=== PATIENT | male | born 1995 | race Two or more races ===

== ENCOUNTER 2025-04-13 23:01 | Emergency (ER) | payer MEDICAID, SELFPAY ==
[2025-04-13 23:04] VITALS: BMI 24.2
[2025-04-14 01:00] VITALS: BP 133/82; PULSE 82; RESP 16; TEMP 37.1; O2SAT 98
--- NOTE | 2025-04-14 01:06 | XR_ITS ---
Examination: CT abdomen with intravenous contrast CT pelvis with intravenous contrast 2-D coronal reconstructions 2-D sagittal reconstructions Date and time of exam: April 14, 2025, 0438 hours INDICATIONS: Onset right lower abdominal pain beginning today. CTDI: vol (mGy) 6.29 DLP: (mGycm) 403 Technique: Multiple axial sections of the abdomen and pelvis have been obtained. 64 slice high-resolution scanner used. 3 mm axial sections have been obtained, post intravenous injection 60 cc Isovue-[id number] 2-D sagittal, coronal reconstructions obtained. Low dose protocols were performed. One or more of the following dose reduction techniques were used; automated exposure control, adjustment of the mA and/or KV according to patient size, use of iterative reconstruction technique. Findings: No focal liver or splenic lesions No gallstones No pancreatic or adrenal mass. No renal or ureteral calculi, no hydronephrosis Mild small bowel ileus Aorta normal size Focal area of fat inflammation in the right lower abdomen, image [id number], measuring 20 mm x 30 mm Normal appendix Urinary bladder intact IMPRESSION: Mild small bowel ileus Normal appendix Epiploic appendagitis
--- NOTE | 2025-04-14 01:07 | PD.EDRME ---
Rapid Medical Screening Exam E Arrival date/time: 04/13/25 23:01 29M with no significant PMH presents to ED with several days of worsening RLQ pain and N/V. No hematuria. Chief Complaint: Abdominal Pain Vital signs: Vital Signs Temperature 98.7 F 04/14/25 01:00 Pulse Rate 82 04/14/25 01:00 Respiratory Rate 16 04/14/25 01:00 Blood Pressure 133/82 H 04/14/25 01:00 Pulse Oximetry (%) 98 04/14/25 01:00 Oxygen Delivery Method Room Air 04/14/25 01:00
[2025-04-14 01:19] LABS: Basophils # (Auto) 0.1 Thou/mm3 (0.0-0.2); Basophils % (Auto) 1 % (0-2.5); Eosinophils # (Auto) 0.1 Thou/mm3 (0.0-0.5); Eosinophils % (Auto) 1 % (0-10); Hematocrit 45.5 % (41.0-53.0); Hemoglobin 15.5 g/dL (13.5-16.0); Immature Granulocytes Auto 0.03 Thou/mm3 (0.00-0.00); Lymphocytes # (Auto) 2.3 Thou/mm3 (1.0-4.8); Lymphocytes % (Auto) 21 % (10-50); Mean Corpuscular HGB Conc 34.1 g/dl (31.0-37.0); Mean Corpuscular Hemoglobin 30.7 pg (25.0-35.0); Mean Corpuscular Volume 90 fL (80-100); Monocytes # (Auto) 1.0 Thou/mm3 (0.0-0.8); Monocytes % (Auto) 9 % (0-12); Neutrophils # (Auto) 7.6 Thou/mm3 (1.8-7.7); Neutrophils % (Auto) 69 % (37-80); Nucleated Red Blood Cell # 0.00 Thou/mm3 (0.00-0.00); Nucleated Red Blood Cell % 0 /100 WBC (0); Platelet Count 236 Thou/mm3 (140-440); RDW Standard Deviation 41.7 fL (35.1-43.9); Red Blood Count 5.05 Miln/mm3 (4.50-5.90); White Blood Count 11.0 Thou/mm3 (3.8-10.6)
[2025-04-14 01:43] LABS: Alanine Aminotransferase 18 U/L (10-49); Albumin, Serum 4.8 gm/dL (3.5-5.0); Albumin/Globulin Ratio 1.9 (1.2-2.2); Alkaline Phosphatase 69 U/L (46-116); Anion Gap 10 (7-16); Aspartate Amino Transferase 22 U/L (0-34); BUN/Creatinine Ratio 11 Ratio (12-20); Bilirubin,Total 1.2 mg/dL (0.3-1.2); Blood Urea Nitrogen 10 mg/dL (9-23); Calcium 9.6 mg/dL (8.3-10.6); Calcium (Corrected) 9.6 mg/dL (8.5-10.1); Carbon Dioxide 30.3 mMol/L (20.0-31.0); Chloride 103 mMol/L (98-107); Creatinine (Component) 0.9 mg/dL (0.6-1.3); Estimated Creatinine Clearance 118.9 mL/min (>60); Globulin 2.5 gm/dL (2.3-3.5); Glucose 106 mg/dL (74-106); Osmolality,Calculated 283 (275-295); Potassium 3.7 mMol/L (3.4-5.1); Sodium 143 mMol/L (136-145); Total Protein 7.3 gm/dL (5.7-8.2); eGFR > 60 See Note
[2025-04-14 02:24] LABS: Collection Type, Urine Clean Catch; Squamous Epithelial Cell,Urine 0 /hpf (0-5)
[2025-04-14 02:30] LABS: Bacteria,Urine Rare; Bilirubin,Urine Negative (Negative); Blood,Urine Negative (Negative); Clarity,Urine Clear (Clear/Hazy); Color,Urine Yellow (Lt Yel-Yel); Culture Indicated,Urine Not Indicated; Glucose, Urine Negative (Negative); Ketones,Urine 1+ (Negative); Leukocyte Esterase,Urine Negative (Negative); Nitrite,Urine Negative (Negative); PH,Urine 6.0 (5.0-7.0); Protein,Urine 1+ (Neg - Trace); RBC,Urine 5 /hpf (0-3); Specific Gravity,Urine 1.036 (1.001-1.035); Urobilinogen,Urine 2.0 mg/dL (0.0-1.0); WBC,Urine 1 /hpf (0-5)
[2025-04-14 02:38] LABS: Amphetamine/Methamp Scrn,U Negative (Negative); Barbiturate Screen,Urine Negative (Negative); Benzodiazepines Screen,Urine Negative (Negative); Benzoylecgonine Screen, Ur Positive (Negative); Fentanyl Screen,Urine Negative (Negative); Opiate Screen,Urine Negative (Negative); THC Screen,Urine Negative (Negative)
[2025-04-14 04:04] VITALS: BP 126/80; PULSE 73; RESP 18; O2SAT 97
--- NOTE | 2025-04-14 05:53 | PRELIM_ITS ---
CT scan of the abdomen and pelvis with intravenous contrast (axial sections with sagittal and coronal reformats) April 14, 2025 0438 hours Clinical History: Right lower quadrant pain. Comparison: No prior study is available for comparison. Findings: The lung bases are clear. Liver, gallbladder, spleen, adrenal glands, pancreas and kidneys are unremarkable. The appendix is normal, best seen on coronal image 62. There is a 6 x 2 x 2 cm area of omental inflammation in the anterior right lower quadrant. Bowel caliber is normal. The urinary bladder is normal. Trace free fluid in the pelvis. No free intraperitoneal air. No acute osseous process. Impression: Right lower quadrant omental inflammation, may represent focal omental infarction. Normal appendix. Report Electronically Signed By: Collin Ortega 04/14/2025 5:52:59 AM [EST]
[2025-04-14] MEDS: SODIUM CHLORIDE 0.9% 1000 ML 1,000 ML 500 ML IV (05:56)
[2025-04-14] MEDS: ONDANSETRON INJ 2 MG/ML INJ 2 ML 4 MG IVP ×2 (06:00→07:35)
[2025-04-14] MEDS: MORPHINE SULF INJ 4 MG/ML VIAL IV (06:01)
[2025-04-14 06:05] VITALS: BP 130/100; PULSE 83; RESP 14; TEMP 37; O2SAT 99
--- NOTE | 2025-04-14 06:55 | EKG_ITS ---
[facility] Test Date: 2025-04-14 Pat Name: MARITA BAKER Department: Room: - Gender: Male [employer]: : 1995 Requested By: Rohan Chan Order Number: [id number] Reading MD: Rohan Chan Measurements Intervals [place] Rate: 76 P: 50 WY: 162 QRS: 13 QRSD: 91 T: 17 QT: 399 QTc: 450 Interpretive Statements SINUS RHYTHM WITH SINUS ARRHYTHMIA POSSIBLE LEFT ATRIAL ENLARGEMENT [-0.1mV P-WAVE IN V1/V2] POSSIBLE LEFT VENTRICULAR HYPERTROPHY [VOLTAGE CRITERIA PLUS LAE OR QRS WIDENING] No previous ECG available for comparison /store/S0/[id number]/[id number].pdf
[2025-04-14 07:28] LABS: Lactate (Lactic Acid) 0.7 mMol/L (0.4-2.0)
--- NOTE | 2025-04-14 07:33 | PC.NURSE ---
PHARMACY CALL FOR [facility]
[2025-04-14 07:35] VITALS: BP 109/77; PULSE 71; RESP 16; TEMP 36.1; O2SAT 99
--- NOTE | 2025-04-14 07:35 | PC.NURSE ---
RE[PORT RECIEIVED AT 0710 AND CARE ASSUMED. PT HERE WITH C/O ABD PAIN FOR 3 DAYS AND HX 12 PACK BEER DAILY
[2025-04-14] MEDS: MORPHINE SULF INJ 4 MG/ML VIAL IVP (07:36)
[2025-04-14 07:46] LABS: INR 1.0 (0.9-1.3); Partial Thromboplastin Time 31.6 Seconds (22.0-36.0); Prothrombin Time 10.9 Seconds (9.0-12.2)
[2025-04-14] MEDS: PIPER/TAZO 3.375 GM PREMIX 3.375 GM/50 ML BAG IV (08:05)
[2025-04-14] MEDS: KETOROLAC INJ 30 MG/ML VIAL IVP (08:05)
[2025-04-14 08:45] VITALS: BP 134/90; PULSE 74; RESP 16; O2SAT 99
--- NOTE | 2025-04-14 11:20 | PD.EDABDPN ---
ED Abdominal Pain RME/HPI General Chief Complaint: Abdominal Pain Stated complaint: RLQ PAIN Time seen by provider: 04/14/25 06:43 Arrival date/time: 04/13/25 23:01 Limitations: no limitations RME / HPI RME / HPI narrative: 04/13/25 23:01 29M with no significant PMH presents to ED with several days of worsening RLQ pain and N/V. No hematuria. DR. CARPIO MAIN ED EVALUATION: 29 year old male with no stated medical history presents to the ED for evaluation of abdominal pain beginning 4 days ago. Described as aching in sensation that is located most to the right lower abdomen with no radiation. Rating 8/10 in severity. Accompanied by nausea and vomiting. Denies fevers, chills, sweats, diarrhea, constipation, or urinary symptoms. No history of similar pain. No known modifying factors at home. Related Data Allergies Allergy/AdvReac Type Severity Reaction Status Date / Time No Known Allergies Allergy Verified 04/13/25 23:03 Review of Systems Review of Systems Systems Reviewed: All systems reviewed, normal except as documented Past Medical History Past Medical History CARDIAC: Negative Cardiac Disorders or Congestive Heart Failure RESPIRATORY: Negative Chronic Obstructive Pulmonary Disease (COPD) or Asthma GENITOURINARY: Negative Renal Disease ENDOCRINE: Negative Diabetes Mellitus Type 1 or Diabetes Mellitus Type 2 HEMATOLOGIC: Negative Sickle Cell Disease Social History SMOKING STATUS: Never smoker ED Exam General Limitations: Present no limitations General appearance: Present alert and other (appears uncomfortable ) Head Head exam: Present atraumatic, normocephalic and normal inspection Eye Eye exam: Present normal appearance, PERRL and EOMI ENT ENT exam: Present normal exam, normal oropharynx and mucous membranes moist Neck Neck exam: Present normal inspection, full ROM and trachea midline Chest Chest inspection: Present normal inspection and symmetric chest wall rise Respiratory Respiratory exam: Present normal lung sounds bilaterally Cardiovascular Cardiovascular exam: Present regular rate, normal rhythm and normal heart sounds Abdominal Exam Abdominal exam: Present soft, tenderness (mild tenderness to the right lower abdomen) and normal bowel sounds; Absent distention, guarding, rebound, rigidity or mass Extremities Exam Extremities exam: Present normal inspection and full ROM Back Exam Back exam: Present normal inspection and full ROM Neurological Exam Neurological exam: Present alert, oriented X3 and CN II-XII intact Psychiatric Psychiatric exam: Present normal affect and normal mood Skin Skin exam: Present warm, dry, intact and normal color Course Quality Measures none Orders Category Date Time Status CT Screening NOW Care 04/14/25 01:06 Completed Business Solutions Director NOW Care 04/14/25 06:55 Completed Continuous Pulse Oximetry NOW Care 04/14/25 06:55 Completed EKG (ED ONLY) *Do not use* NOW Care 04/14/25 06:55 Completed Insert IV NOW Care 04/14/25 01:07 Completed Insert IV NOW Care 04/14/25 06:55 Completed NPO NOW Care 04/14/25 04:43 Completed Diet NPO (NOW) Diet 04/14/25 04:[address] abdomen pelvis w con Stat Exams 04/14/25 01:06 Completed EKG (ED Only) Stat Exams 04/14/25 06:55 Draft Blood Culture (Lab) Stat Lab 04/14/25 07:19 Completed CBC Stat Lab 04/14/25 01:14 Completed CMP [Comprehensive Metabolic Panel] Stat Lab 04/14/25 01:14 Completed Drug Screen,Urine Stat Lab 04/14/25 01:42 Completed Lactic Acid [Lactate (Lactic Acid)] Stat Lab 04/14/25 07:19 Completed Partial Thromboplastin Time Stat Lab 04/14/25 07:19 Completed Prothrombin Time with INR Stat Lab 04/14/25 07:19 Completed Urinalysis, C/S if Indicated Stat Lab 04/14/25 01:42 Completed Ketorolac Inj [Toradol Inj] Med 04/14/25 07:49 Discontinued 30 mg IVP X1 ONE Morphine* Inj Med 04/14/25 04:43 Discontinued 4 mg IV X1 ONE Morphine* Inj Med 04/14/25 06:57 Discontinued 4 mg IVP X1 ONE Ondansetron Inj [Zofran Inj] Med 04/14/25 04:43 Discontinued 4 mg IVP X1 ONE Ondansetron Inj [Zofran Inj] Med 04/14/25 06:57 Discontinued 4 mg IVP X1 ONE Piper/Tazo 3.375 gm Premix [Zosyn] Med 04/14/25 06:56 Discontinued 3.375 gm in 50 ml IV X1 Sodium Chloride 0.9% 1000 ml [Ns] 1,000 ml Med 04/14/25 04:43 Discontinued IV 500 mls/hr Vital Signs Vital signs: Vital Signs Temperature 98.7 F 04/14/25 01:00 Pulse Rate 82 04/14/25 01:00 Respiratory Rate 16 04/14/25 01:00 Blood Pressure 133/82 H 04/14/25 01:00 Pulse Oximetry (%) 98 04/14/25 01:00 Oxygen Delivery Method Room Air 04/14/25 01:00 Pulse ox is 98% on room air which is adequate. Abdominal Pain MDM MDM Narrative MDM Narrative:: Laurel Bynum am scribing for and in the presence of Dr. Carpio. Patient data External records reviewed:: [facility] previous records Clinical information provided by:: patient Social determinants that could affect healthcare access:: none Patient has the following chronic illnesses:: None reported How is presenting disease/condition affected by chronic disease/condition?: no chronic disease Evaluation data The following diagnostics were reviewed and interpreted by me:: lab results, radiology exam(s) and EKG tracing(s) (EKG @ 08:21 AM. NSR with sinus arrythmia, rate 76, no STEMI. ) Lab and/or radiology exams considered but not ordered:: None Interpretation Summary: Ordering Physician: Finn Graham PA-C Date of Service: 04/14/25 Procedure(s): CT abdomen pelvis w con Accession Number(s): [id number] cc: Peter Burnett MD; NO PRIMARY/FAMILY,PHYSICIAN; Finn Graham PA-C~ Examination: CT abdomen with intravenous contrast CT pelvis with intravenous contrast 2-D coronal reconstructions 2-D sagittal reconstructions Date and time of exam: April 14, 2025, 0438 hours INDICATIONS: Onset right lower abdominal pain beginning today. CTDI: vol (mGy) 6.29 DLP: (mGycm) 403 Technique: Multiple axial sections of the abdomen and pelvis have been obtained. 64 slice high-resolution scanner used. 3 mm axial sections have been obtained, post intravenous injection 60 cc Isovue-[id number] 2-D sagittal, coronal reconstructions obtained. Low dose protocols were performed. One or more of the following dose reduction techniques were used; automated exposure control, adjustment of the mA and/or KV according to patient size, use of iterative reconstruction technique. Findings: No focal liver or splenic lesions No gallstones No pancreatic or adrenal mass. No renal or ureteral calculi, no hydronephrosis Mild small bowel ileus Aorta normal size Focal area of fat inflammation in the right lower abdomen, image [id number], measuring 20 mm x 30 mm Normal appendix Urinary bladder intact IMPRESSION: Mild small bowel ileus Normal appendix Epiploic appendagitis Dictated By: Peter Burnett MD Signed By: <Electronically signed by Peter Burnett MD in OV> 04/14/25 0744 Medications / Prescriptions Medications or Prescriptions considered but not ordered:: None Medication administrations:: Medication Administration History Discontinued Medications Sodium Chloride (Ns) 1,000 mls @ 500 mls/hr IV .Q2H ONE Stop: 04/14/25 06:42 Last Infusion: 04/14/25 08:15 Dose: Infused Documented By: Admin: 04/14/25 05:56 Dose: 500 mls/hr Documented By: TA Piperacillin/Tazobactam/Dextrose (Zosyn) 3.375 gm in 50 mls @ 100 mls/hr IV X1 ONE; Protocol Stop: 04/14/25 07:25 Last Infusion: 04/14/25 08:33 Dose: Infused Documented By: Admin: 04/14/25 08:05 Dose: 100 mls/hr Documented By: NATALIA Ketorolac Tromethamine (Ketorolac Inj 30 Mg/Ml Vial) 30 mg IVP X1 ONE Stop: 04/14/25 07:50 Last Admin: 04/14/25 08:05 Dose: 30 mg Documented By: NATALIA Morphine Sulfate (Morphine Sulf Inj 4 Mg/Ml Vial) 4 mg IV X1 ONE Stop: 04/14/25 04:44 Last Admin: 04/14/25 06:01 Dose: 4 mg Documented By: TA Morphine Sulfate (Morphine Sulf Inj 4 Mg/Ml Vial) 4 mg IVP X1 ONE Stop: 04/14/25 06:58 Last Admin: 04/14/25 07:36 Dose: 4 mg Documented By: NATALIA Ondansetron HCl (Ondansetron Inj 2 Mg/Ml Inj 2 Ml) 4 mg IVP X1 ONE; Protocol Stop: 04/14/25 04:44 Last Admin: 04/14/25 06:00 Dose: 4 mg Documented By: DT Ondansetron HCl (Ondansetron Inj 2 Mg/Ml Inj 2 Ml) 4 mg IVP X1 ONE; Protocol Stop: 04/14/25 06:58 Last Admin: 04/14/25 07:35 Dose: 4 mg Documented By: [facility] None Consultations Consultation(s) initiated? (list below): No Diagnosis Differential diagnosis abdominal pain: abdominal pain, acute appendicitis, calculus of kidney and constipation Most likely diagnosis given after review of the tests above:: Epiploci appendagitis Abdominal pain Admission Indicated Admission indicated?: not indicated Admission Request Was there a request for admission?: No Disposition Plan Disposition Plan: Discharge Discharge Attestation Discharge Attestation: The patient and all family members were given an opportunity to ask questions and understood the discharge instructions. Discharge instructions specifically effects, indications for sooner follow up or return to the emergency department, and the expected course of current diagnosis. Patient condition: Stable Discharge Plan Plan Patient Disposition: HOME (Self Care) Patient condition on transfer: Stable Prescriptions/Referrals Referrals: No Primary/Family,Physician [Primary Care Provider] - In 1 week Problem List Clinical Impression: Epiploic appendagitis, Abdominal pain Patient/Caregiver Discharge Instructions Discharge Activity: activity as tolerated Education Materials: Abdominal Pain, Anatomy of the Digestive System Additional Instructions: Take Advil gelcaps 3 caps every 6 hours for 5 days. Follow-up with your doctor in 1 day. If you have any concerns please return to the emergency department. Print Language: Iranian Stand Alone Forms: Shivani Award Info., Patient Portal Info Letter
--- NOTE | 2025-04-23 10:46 | EDNOTE_ITS ---
ED General RME/HPI General Chief complaint: Abdominal Pain Stated complaint: RLQ PAIN Time Seen by Provider: 04/14/25 06:43 Arrival date/time: 04/13/25 23:01 Limitations: no limitations RME / HPI RME / HPI narrative: 04/13/25 23:01 29M with no significant PMH presents to ED with several days of worsening RLQ pain and N/V. No hematuria. DR. CARPIO MAIN ED EVALUATION: 29 year old male with no stated medical history presents to the ED for evaluation of abdominal pain beginning 4 days ago. Described as aching in sensation that is located most to the right lower abdomen with no radiation. Rating 8/10 in severity. Accompanied by nausea and vomiting. Denies fevers, chills, sweats, diarrhea, constipation, or urinary symptoms. No history of similar pain. No known modifying factors at home. Related Data Allergies Allergy/AdvReac Type Severity Reaction Status Date / Time No Known Allergies Allergy Verified 04/13/25 23:03 ED Exam General Limitations: Present no limitations General appearance: Present alert and other (appears uncomfortable ) Head Head exam: Present atraumatic Eye Eye exam: Present normal appearance, PERRL and EOMI ENT ENT exam: Present normal exam, normal oropharynx and mucous membranes moist Neck Neck exam: Present normal inspection, full ROM and trachea midline Chest Chest inspection: Present normal inspection and symmetric chest wall rise Respiratory Respiratory exam: Present normal lung sounds bilaterally Cardiovascular Cardiovascular exam: Present regular rate, normal rhythm and normal heart sounds Abdominal Exam Abdominal exam: Present soft, tenderness and normal bowel sounds; Absent organomegaly or mass Abdominal tenderness: Present diffuse exam: Present normal inspection; Absent testicular tenderness Extremities Exam Extremities exam: Present normal inspection and full ROM Back Exam Back exam: Present normal inspection and full ROM Neurological Exam Neurological exam: Present alert, oriented X3 and CN II-XII intact Psychiatric Psychiatric exam: Present normal affect and normal mood Skin Skin exam: Present warm, dry, intact and normal color Course Quality Measures none Orders Category Date Time Status CT Screening NOW Care 04/14/25 01:06 Completed Pig Machine Operator NOW Care 04/14/25 06:55 Completed Continuous Pulse Oximetry NOW Care 04/14/25 06:55 Completed EKG (ED ONLY) *Do not use* NOW Care 04/14/25 06:55 Completed Insert IV NOW Care 04/14/25 01:07 Completed Insert IV NOW Care 04/14/25 06:55 Completed NPO NOW Care 04/14/25 04:43 Completed Diet NPO (NOW) Diet 04/14/25 04:[address] abdomen pelvis w con Stat Exams 04/14/25 01:06 Completed EKG (ED Only) Stat Exams 04/14/25 06:55 Draft Blood Culture (Lab) Stat Lab 04/14/25 07:19 Completed CBC Stat Lab 04/14/25 01:14 Completed CMP [Comprehensive Metabolic Panel] Stat Lab 04/14/25 01:14 Completed Drug Screen,Urine Stat Lab 04/14/25 01:42 Completed Lactic Acid [Lactate (Lactic Acid)] Stat Lab 04/14/25 07:19 Completed Partial Thromboplastin Time Stat Lab 04/14/25 07:19 Completed Prothrombin Time with INR Stat Lab 04/14/25 07:19 Completed Urinalysis, C/S if Indicated Stat Lab 04/14/25 01:42 Completed Ketorolac Inj [Toradol Inj] Med 04/14/25 07:49 Discontinued 30 mg IVP X1 ONE Morphine* Inj Med 04/14/25 04:43 Discontinued 4 mg IV X1 ONE Morphine* Inj Med 04/14/25 06:57 Discontinued 4 mg IVP X1 ONE Ondansetron Inj [Zofran Inj] Med 04/14/25 04:43 Discontinued 4 mg IVP X1 ONE Ondansetron Inj [Zofran Inj] Med 04/14/25 06:57 Discontinued 4 mg IVP X1 ONE Piper/Tazo 3.375 gm Premix [Zosyn] Med 04/14/25 06:56 Discontinued 3.375 gm in 50 ml IV X1 Sodium Chloride 0.9% 1000 ml [Ns] 1,000 ml Med 04/14/25 04:43 Discontinued IV 500 mls/hr Vital Signs Vital signs: Vital Signs Temperature 98.7 F 04/14/25 01:00 Pulse Rate 82 04/14/25 01:00 Respiratory Rate 16 04/14/25 01:00 Blood Pressure 133/82 H 04/14/25 01:00 Pulse Oximetry (%) 98 04/14/25 01:00 Oxygen Delivery Method Room Air 04/14/25 01:00 Discharge Plan Plan Patient Disposition: HOME (Self Care) Patient condition on transfer: Stable Prescriptions/Referrals Referrals: No Primary/Family,Physician [Primary Care Provider] - In 1 week Problem List Clinical Impression: Epiploic appendagitis, Abdominal pain Patient/Caregiver Discharge Instructions Discharge Activity: activity as tolerated Education Materials: Abdominal Pain, Anatomy of the Digestive System Additional Instructions: Take Advil gelcaps 3 caps every 6 hours for 5 days. Follow-up with your doctor in 1 day. If you have any concerns please return to the emergency department. Print Language: Zimbabwean Stand Alone Forms: Shivani Award Info., Patient Portal Info Letter MDM Medication Administration(s) Medication Administration History Discontinued Medications Sodium Chloride (Ns) 1,000 mls @ 500 mls/hr IV .Q2H ONE Stop: 04/14/25 06:42 Last Infusion: 04/14/25 08:15 Dose: Infused Documented By: Admin: 04/14/25 05:56 Dose: 500 mls/hr Documented By: TA Piperacillin/Tazobactam/Dextrose (Zosyn) 3.375 gm in 50 mls @ 100 mls/hr IV X1 ONE; Protocol Stop: 04/14/25 07:25 Last Infusion: 04/14/25 08:33 Dose: Infused Documented By: Admin: 04/14/25 08:05 Dose: 100 mls/hr Documented By: NATALIA Ketorolac Tromethamine (Ketorolac Inj 30 Mg/Ml Vial) 30 mg IVP X1 ONE Stop: 04/14/25 07:50 Last Admin: 04/14/25 08:05 Dose: 30 mg Documented By: NATALIA Morphine Sulfate (Morphine Sulf Inj 4 Mg/Ml Vial) 4 mg IV X1 ONE Stop: 04/14/25 04:44 Last Admin: 04/14/25 06:01 Dose: 4 mg Documented By: TA Morphine Sulfate (Morphine Sulf Inj 4 Mg/Ml Vial) 4 mg IVP X1 ONE Stop: 04/14/25 06:58 Last Admin: 04/14/25 07:36 Dose: 4 mg Documented By: NATALIA Ondansetron HCl (Ondansetron Inj 2 Mg/Ml Inj 2 Ml) 4 mg IVP X1 ONE; Protocol Stop: 04/14/25 04:44 Last Admin: 04/14/25 06:00 Dose: 4 mg Documented By: TA Ondansetron HCl (Ondansetron Inj 2 Mg/Ml Inj 2 Ml) 4 mg IVP X1 ONE; Protocol Stop: 04/14/25 06:58 Last Admin: 04/14/25 07:35 Dose: 4 mg Documented By: NATALIA
== END 2025-04-14 08:46 | disposition home or self-care (01) ==
PROVIDERS: Physician Assistant; Emergency Provider Family Medicine
DX: K63.89 Other specified diseases of intestine (principal); K56.7 Ileus, unspecified; I49.8 Other specified cardiac arrhythmias
CPT/HCPCS: 36415; 74177; 80053; 80307; 81001; 83605; 85025; 85610; 85730; 87040; 96361; 96365; 96375; 96376; 99284; A4649; J1885; J2270; J2405; J2543; J7030; Q9967